=== PATIENT | female | born 1975 | race Asian ===

== ENCOUNTER 2018-03-18 09:17 | Emergency (ER) | payer BC ==
[~2018-03-18] VITALS: Ht 157.5 cm; Wt 59.0 kg
[2018-03-18 09:20] VITALS: BP 136/85
[2018-03-18 11:06] LABS: BASOPHILS % (AUTO) 0.4 % (0.0-2.0); EOSINOPHILS % (AUTO) 0.5 % (0.0-4.0); HEMATOCRIT 46.9 % (36-48); HEMOGLOBIN 15.9 g/dL (12.0-16.0); LYMPHOCYTES # (AUTO) 3.1 K/uL (2.5-16.5); LYMPHOCYTES % (AUTO) 30.8 % (20.5-51.1); MEAN CORPUSCULAR HEMOGLOBIN 30 pg (27-31); MEAN CORPUSCULAR HGB CONC 34 g/dL (33-37); MONOCYTES # (AUTO) 0.6 K/uL (0.8-1.0); MONOCYTES % (AUTO) 6.2 % (1.7-9.3); NEUTROPHILS # (AUTO) 6.2 K/uL (1.8-7.7); NEUTROPHILS % (AUTO) 62.1 % (42.2-75.2); PLATELET COUNT (AUTO) 258 K/uL (140-450); RED BLOOD CELL COUNT(AUTO) 5.39 MIL/uL (4.20-5.40); RED CELL DISTRIBUTION WIDTH 13.1 % (11.6-13.7); WHITE BLOOD COUNT (AUTO) 9.9 K/uL (4.8-10.8)
[2018-03-18 11:24] LABS: PROTHROMBIN TIME 10.4 secs (10.8-13.4)
[2018-03-18 11:44] LABS: ANION GAP 19.3 (8-16); CARBON DIOXIDE 22.9 mmol/L (21-32); CREATININE 1.1 mg/dL (0.6-1.3); POTASSIUM 3.2 mmol/L (3.5-5.1)
[2018-03-18 11:48] LABS: ALBUMIN 4.1 g/dL (3.4-5.0); TOTAL BILIRUBIN 0.6 mg/dL (0.0-1.0)
[2018-03-18 12:55] VITALS: BP 123/80
== END 2018-03-18 12:55 | disposition home or self-care (01) ==
LOC: MED 09:17
DX: F45.8 Other somatoform disorders (principal); E87.6 Hypokalemia; Z88.1 Allergy status to other antibiotic agents; Z88.8 Allergy status to other drugs, medicaments and biological substances
CPT/HCPCS: 36415; 71045; 80053; 84484; 85025; 85610; 85730; 93005; 99284; Q0092